=== PATIENT | male | born 1935 | race Caucasian/White ===

== ENCOUNTER 2025-03-27 06:30 | Outpatient (RCR) | payer MEDICARE, BC, OTHER, SELFPAY | END 2025-04-26 23:59 | disposition home or self-care (01) | LOC: MPT 06:30 | PROVIDERS: Family Provider Family Medicine; Visit Provider Family Medicine | DX: I63.9 Cerebral infarction, unspecified (principal); R29.6 Repeated falls | CPT/HCPCS: 97110; 97112; 97162 ==

== ENCOUNTER 2025-04-27 05:00 | Outpatient (RCR) | payer MEDICARE, BC, OTHER, SELFPAY | END 2025-05-27 23:59 | disposition home or self-care (01) | LOC: MPT 05:00 | PROVIDERS: Visit Provider Family Medicine | DX: I63.9 Cerebral infarction, unspecified (principal); R29.6 Repeated falls | CPT/HCPCS: 97110; 97112 ==

== ENCOUNTER 2025-04-27 05:00 | Outpatient (RCR) | payer MEDICARE, BC, OTHER, SELFPAY | END 2025-05-27 23:59 | disposition home or self-care (01) | LOC: MST 05:00 | PROVIDERS: Visit Provider Family Medicine | DX: I69.320 Aphasia following cerebral infarction (principal) | CPT/HCPCS: 92507; 92523 ==

== ENCOUNTER 2025-05-28 05:00 | Outpatient (RCR) | payer MEDICARE, BC, OTHER, SELFPAY | END 2025-06-26 23:59 | disposition home or self-care (01) | LOC: MST 05:00 | PROVIDERS: Visit Provider Family Medicine | DX: I69.320 Aphasia following cerebral infarction (principal) | CPT/HCPCS: 92507 ==

== ENCOUNTER 2025-05-28 05:00 | Outpatient (RCR) | payer MEDICARE, BC, OTHER, SELFPAY | END 2025-06-26 23:59 | disposition home or self-care (01) | LOC: MPT 05:00 | PROVIDERS: Visit Provider Family Medicine | DX: R29.6 Repeated falls (principal); I63.9 Cerebral infarction, unspecified | CPT/HCPCS: 97110; 97112; 97530 ==

== ENCOUNTER 2025-07-25 08:55 | Outpatient (RCR) | payer MEDICARE, BC, OTHER, SELFPAY | END 2025-07-27 23:59 | disposition home or self-care (01) | LOC: MST 08:55 | PROVIDERS: Visit Provider Family Medicine | DX: I69.320 Aphasia following cerebral infarction (principal) | CPT/HCPCS: 92507 ==

== ENCOUNTER 2025-07-25 08:56 | Outpatient (RCR) | payer MEDICARE, BC, OTHER, SELFPAY | END 2025-07-27 23:59 | disposition home or self-care (01) | LOC: MPT 08:56 | PROVIDERS: Visit Provider Family Medicine | DX: R26.9 Unspecified abnormalities of gait and mobility (principal); I63.9 Cerebral infarction, unspecified | CPT/HCPCS: 97110; 97112; 97530 ==

== ENCOUNTER 2025-08-01 08:52 | Outpatient (RCR) | payer MEDICARE, BC, OTHER, SELFPAY | END 2025-08-01 10:08 | disposition home or self-care (01) | LOC: MPT 08:52 | PROVIDERS: Visit Provider Family Medicine | DX: R29.6 Repeated falls (principal); I63.9 Cerebral infarction, unspecified | CPT/HCPCS: 97110; 97112; 97530 ==

== ENCOUNTER 2025-08-22 12:58 | Outpatient (RCR) | payer MEDICARE, BC, OTHER, SELFPAY | END 2025-08-26 23:59 | disposition home or self-care (01) | LOC: MST 12:58 | PROVIDERS: Visit Provider Family Medicine | DX: I69.320 Aphasia following cerebral infarction (principal) | CPT/HCPCS: 92507 ==

== ENCOUNTER 2025-09-05 12:56 | Outpatient (RCR) | payer MEDICARE, BC, OTHER, SELFPAY | END 2025-09-26 23:59 | disposition home or self-care (01) | LOC: MST 12:56 | PROVIDERS: Visit Provider Family Medicine | DX: I69.320 Aphasia following cerebral infarction (principal) | CPT/HCPCS: 92507 ==